=== PATIENT | female | born 1935 | race Caucasian/White ===

== ENCOUNTER 2019-07-11 19:06 | Inpatient (IN) | payer MEDICARE, OTHER ==
[~2019-07-11] VITALS: Ht 162.6 cm; Wt 58.2 kg
[2019-07-11 21:11] LABS: ALANINE AMINOTRANSFERASE 16 U/L (12-78); ALBUMIN 3.7 G/DL (3.4-5.0); ALBUMIN/GLOBULIN RATIO 1.1 (1.1-1.5); ALKALINE PHOSPHATASE 49 IU/L (46-116); ANION GAP 9 (8-16); ASPARTATE AMINO TRANSFERASE 20 U/L (10-37); BASOPHILS # (AUTO) 0.1 X10'3 (0-0.2); BASOPHILS % (AUTO) 0.7 % (0-1); BILIRUBIN,TOTAL 0.7 MG/DL (0.1-1.0); BLOOD UREA NITROGEN 19 MG/DL (7-18); BUN/CREATININE RATIO 22.1 (6.6-38.0); CALCIUM 8.7 MG/DL (8.5-10.1); CHLORIDE 105 MMOL/L (99-107); CREATININE 0.86 MG/DL (0.40-0.90); EOSINOPHILS % (AUTO) 0.1 % (0-6); GLUCOSE 134 MG/DL (70-104); HEMATOCRIT 40.4 % (35.0-45.0); HEMOGLOBIN 13.6 g/dl (12.0-16.0); LYMPHOCYTES # (AUTO) 0.6 X10'3 (1.1-4.8); LYMPHOCYTES % (AUTO) 4.1 % (21-51); MEAN CORPUSCULAR HEMOGLOBIN 31.6 PG (27.0-31.0); MEAN CORPUSCULAR HGB CONC 33.7 g/dL (33.0-36.5); MEAN CORPUSCULAR VOLUME 93.9 FL (78-98); MEAN PLATELET VOLUME 8.1 FL (7.4-10.4); MONOCYTES # (AUTO) 0.8 X10'3 (0-0.9); MONOCYTES % (AUTO) 5.3 % (2-12); NEUTROPHILS # (AUTO) 14.1 X10'3 (1.8-7.7); NEUTROPHILS % (AUTO) 89.8 % (42-75); PLATELET COUNT 265 X10'3 (140-440); POTASSIUM 3.9 MMOL/L (3.5-5.1); RED CELL DISTRIBUTION WIDTH 13.5 % (11.5-14.5); SODIUM 138 MMOL/L (135-145); TOTAL CARBON DIOXIDE 23.7 MMOL/L (24-32); WHITE BLOOD COUNT 15.7 X10'3 (4.5-11.0); eGFR 63 ML/MIN
[2019-07-11 21:19] LABS: TROPONIN I < 0.04 NG/ML (0.0-0.05)
[2019-07-11] MEDS ORDERED: iohexol 350MG/ML 100ml bottle IV ONE (22:29)
--- NOTE | 2019-07-11 22:40 | NUR ---
Pt transported to CT for scan.
[2019-07-12] MEDS ORDERED: normal saline 1000ML IV soln IV ONE (00:20)
[2019-07-12] MEDS ORDERED: levoFLOXACIN-Levaquin 750MG/D5 150 ML IV ONE (00:20)
[2019-07-12] MEDS ORDERED: HYDR-3972 PO (00:24)
[2019-07-12] MEDS ORDERED: potassium CL 10mEq/100ml bag 100 ML IV PRN ×2 (00:35)
[2019-07-12] MEDS ORDERED: acetaminophen 325mg tablet PO PRN ×2 (00:35)
[2019-07-12] MEDS ORDERED: mag hydrox/Alum hydrox/simeth 30ml oral suspension PO PRN (00:35)
[2019-07-12] MEDS ORDERED: magnesium 4gm in 100ml NS 100 ML IV PRN (00:35)
[2019-07-12] MEDS ORDERED: potassium Cl 20 mEq SR tablet PO PRN ×2 (00:35)
[2019-07-12] MEDS ORDERED: magnesium Cl slow-release 64mg tablet PO PRN (00:35)
[2019-07-12] MEDS ORDERED: normal saline 1000ml 1,000 ML IV ONE (00:35)
[2019-07-12] MEDS ORDERED: magnesium 2GM in 50ml NS 50 ML IV PRN (00:35)
[2019-07-12] MEDS ORDERED: magnesium hydroxide 30ml (MOM) UD suspension PO PRN (00:35)
[2019-07-12] MEDS ORDERED: ondansetron/PF 4mg/2ml inj IV PRN (00:35)
[2019-07-12] MEDS: HYDROcodone/acetaminophen 5mg/325mg tablet PO PRN ×2 (03:03→17:11)
[2019-07-12 03:20] VITALS: BP 144/56
[2019-07-12 05:00] VITALS: BP 124/42
[2019-07-12] MEDS ORDERED: K and/or MAG REPLACEMENT MC SCH (08:00)
[2019-07-12] MEDS: lactobacillus rhamnosus 10,000 MMU CELLS/CAPSULE PO SCH ×2 (08:06→20:17)
[2019-07-12] MEDS: CefTRIAXone/D5W-Rocephin 1gm 50 ML IV SCH (08:07)
[2019-07-12] MEDS: ipratropium/albuterol 3ml nebule NEB SCH ×2 (09:45→14:39)
[2019-07-12] MEDS ORDERED: ipratropium/albuterol 3ml nebule NEB PRN (16:00)
--- NOTE | 2019-07-12 18:25 | NUR ---
Patient in room [facility] 4014. I have received report from CHERYL Mcclure and had the opportunity to ask questions and assume patient care. Patient is sitting up in bed eating dinner w/o problem, family is at the bedside.
--- NOTE | 2019-07-12 18:30 | NUR ---
Problems reprioritized. Patient report given, questions answered & plan of care reviewed with CHERYL Garnica.
[2019-07-12] MEDS ORDERED: HYDROcodone/acetaminophen 10/325mg tab PO SCH (21:00)
[2019-07-13 05:00] VITALS: BP 141/47
[2019-07-13 05:58] LABS: ALBUMIN 2.8 G/DL (3.4-5.0); ANION GAP 9 (8-16); BLOOD UREA NITROGEN 13 MG/DL (7-18); BUN/CREATININE RATIO 18.8 (6.6-38.0); CALCIUM 8.2 MG/DL (8.5-10.1); CHLORIDE 111 MMOL/L (99-107); CREATININE 0.69 MG/DL (0.40-0.90); GLUCOSE 106 MG/DL (70-104); MAGNESIUM 2.2 MG/DL (1.5-2.4); POTASSIUM 3.8 MMOL/L (3.5-5.1); SODIUM 145 MMOL/L (135-145); TOTAL CARBON DIOXIDE 25.1 MMOL/L (24-32); eGFR 81 ML/MIN
[2019-07-13 06:08] LABS: BASOPHILS % (AUTO) 0.4 % (0-1); EOSINOPHILS # (AUTO) 0.1 X10'3 (0-0.9); EOSINOPHILS % (AUTO) 0.6 % (0-6); HEMATOCRIT 36.2 % (35.0-45.0); HEMOGLOBIN 12.1 g/dl (12.0-16.0); LYMPHOCYTES % (AUTO) 9.5 % (21-51); MEAN CORPUSCULAR HEMOGLOBIN 31.7 PG (27.0-31.0); MEAN CORPUSCULAR HGB CONC 33.5 g/dL (33.0-36.5); MEAN CORPUSCULAR VOLUME 94.6 FL (78-98); MEAN PLATELET VOLUME 7.8 FL (7.4-10.4); MONOCYTES # (AUTO) 1.1 X10'3 (0-0.9); MONOCYTES % (AUTO) 10.5 % (2-12); NEUTROPHILS # (AUTO) 8.5 X10'3 (1.8-7.7); PLATELET COUNT 238 X10'3 (140-440); RED BLOOD COUNT 3.83 X10'6 (4.20-5.60); WHITE BLOOD COUNT 10.8 X10'3 (4.5-11.0)
--- NOTE | 2019-07-13 06:36 | NUR ---
Problems reprioritized. Patient report given, questions answered & plan of care reviewed with CHERYL Mcclure.
[2019-07-13] MEDS: CefTRIAXone/D5W-Rocephin 1gm 50 ML IV SCH (07:34)
[2019-07-13] MEDS: lactobacillus rhamnosus 10,000 MMU CELLS/CAPSULE PO SCH (07:52)
[2019-07-13] MEDS: HYDROcodone/acetaminophen 5mg/325mg tablet PO PRN ×2 (07:52→14:11)
[2019-07-13] MEDS ORDERED: levoFLOXACIN-Levaquin 250mg/D5 50 ML IV SCH (08:00)
[2019-07-13 10:00] VITALS: BP 136/45
[2019-07-13] MEDS ORDERED: CEFD300C3 PO (10:38)
[2019-07-13] MEDS ORDERED: LEVO750T21 PO (10:38)
--- NOTE | 2019-07-13 14:30 | NUR ---
DISCHARGE: All necessary documents signed and copies released to pt. Dr Lopez saw pt in the AM, pt requested a referral for a senior financial. Pt stated she would not DC unless she saw a senior financial today. Explained pt provider would refer pt and to follow up w/primary provider in a week. deemed pt ok to go home w/oral antibiotics. Pt agreeable to this. [facility] delivered abx at bedside. Addendum: 07/13/19 at 1547 by Kami Ornelas RN DISCHARGE: pt understands she is to continue tx/oral abx as ordered. VSS, Lungs clear, wet bases, pt cough strong, intermittent, productive, tinge of blood in sputum. Pt denies pain when coughing, denies CP, SOB, resp distress, N/V, vertigo. pt ambulates independently. A/O able to make needs known. Forgetful at times, repeats information. Pt can get anxious, emotional at times and focuses on referrals to be seen by senior financial, Dr Caraballo. This nurse contacted Dr Caraballo, confirmed pt primary physician had sent referral and is being looked over. Requested fax of pt recent visit to [facility] to be added to pt file. pt will be contacted by office with further information or appt. pt states she already knew primary referred. pt thought hospital referral would ensure Dr Caraballo office would accept her in a timely manner. pt was given all info and follow up instructions and thanked this nurse for "saving her life". Pt verbalized understanding and was waiting for her son to bring her clothes and take her home. Pt escorted GEORGE in WC by [facility] staff and son. pt stated to [facility] staff member wheeling her GEORGE that she was very angry to be leaving without having seen a senior financial. Pt assured the senior financial has her info and would be contacting her. Pt transferred safely into personal vehicle.
== END 2019-07-13 14:32 | disposition home or self-care (01) | DRG 194 ==
LOC: ER 19:07 → ORTHO 4S 07-12 01:37 → CMPBEDREQ 07-12 19:35
PROVIDERS: ADMIT Hospitalist; ATTEND Family Medicine
PROC: B32T1ZZ Computerized Tomography (CT Scan) of Left Pulmonary Artery using Low Osmolar Contrast (ICD-10-PCS; principal; 2019-07-11)
PROC: B3201ZZ Computerized Tomography (CT Scan) of Thoracic Aorta using Low Osmolar Contrast (ICD-10-PCS; 2019-07-11)
PROC: B32S1ZZ Computerized Tomography (CT Scan) of Right Pulmonary Artery using Low Osmolar Contrast (ICD-10-PCS; 2019-07-11)
DX: J18.1 Lobar pneumonia, unspecified organism (principal); R04.2 Hemoptysis; M19.90 Unspecified osteoarthritis, unspecified site; Z90.710 Acquired absence of both cervix and uterus; Z88.0 Allergy status to penicillin; Z88.2 Allergy status to sulfonamides; Z79.899 Other long term (current) drug therapy
CPT/HCPCS: 36415; 71045; 71275; 80048; 80053; 83605; 83735; 83880; 84145; 84484; 85025; 87081; 92508; 92616; 93005; 94640; 94760; 96365; 97161; 97530; 99285; G0378; J0696; J1956; Q9967